=== PATIENT | female | born 1965 | race Caucasian/White ===

== ENCOUNTER 2017-08-04 20:50 | Emergency (ER) | payer MEDICAID ==
[~2017-08-04] VITALS: Ht 152.4 cm; Wt 90.7 kg
[2017-08-04 20:50] VITALS: BP_SYST 107
[~2017-08-04 20:50] MED LIST: AMLO5TAB4 PO; AMYL1CAP54 PO; BEN50 PO; CEPH-568 PO; COG1 PO; DOCU-144 PO; FERR-57 PO; FERR-69 PO; FOLI-43 PO; FURO-149 PO; GABA-531 PO; GLIP10TA74 PO; GLU500 PO; LACT10SO66 PO; LEVE750T4 PO; LEVO500T20 PO; LISI10TA5 PO; LORA-259 PO; MELO15TA13 PO; METO-290 PO; NYSSUS PO; OMEP20CA4 PO; PRO20 PO; PRO40 PO; ROPI0.5T PO; SPIR50TA PO; TRAM50TA92 PO; ZOLP5TAB2 PO
[2017-08-05] MEDS ORDERED: DIPHENHYDRAMINE INJ 50 MG/ML VIAL IM ONE (01:00)
[2017-08-05] MEDS ORDERED: MORPHINE SULFATE 10 MG/ML VIAL IM ONE (01:00)
[2017-08-05 02:20] VITALS: BP_SYST 107
== END 2017-08-05 02:20 | disposition home or self-care (01) ==
LOC: SED 20:50
DX: M84.421A Pathological fracture, right humerus, initial encounter for fracture (principal); K62.89 Other specified diseases of anus and rectum; E11.9 Type 2 diabetes mellitus without complications; I10 Essential (primary) hypertension; K74.60 Unspecified cirrhosis of liver; Z86.2 Personal history of diseases of the blood and blood-forming organs and certain disorders involving the immune mechanism; Z90.710 Acquired absence of both cervix and uterus; Z90.49 Acquired absence of other specified parts of digestive tract; Z86.73 Personal history of transient ischemic attack (TIA), and cerebral infarction without residual deficits; Z79.899 Other long term (current) drug therapy; Z88.5 Allergy status to narcotic agent; Z88.6 Allergy status to analgesic agent
CPT/HCPCS: 73030; 82272; 96372; 99285; J1200; J2270